=== PATIENT | female | born 1995 | race Caucasian/White ===

== ENCOUNTER 2019-07-05 10:35 | Emergency (ER) | payer SELFPAY ==
[~2019-07-05] VITALS: Ht 172.7 cm; Wt 81.6 kg
[2019-07-05] MEDS ORDERED: SERTRALINE HCL100 MG PO (10:52)
[2019-07-05] MEDS ORDERED: DEBROX15 M1 BOTH EARS (11:19)
--- NOTE | 2019-07-05 11:25 | NUR ---
ER DISCHARGE NOTE: Patient is cleared to be discharged per ERMD, pt is aox4, on room air, with stable vital signs. pt was given dc and prescription instructions, pt was able to verbalize understanding, pt is able to ambulate with steady gait. pt took all belongings.
[2019-07-05 11:43] VITALS: BP 97/68
--- NOTE | 2019-07-05 13:51 | Emergency Room Report ---
History of Present Illness General Chief Complaint: Earache Source: Patient Present Illness HPI 24-year-old female presents ED for evaluation. States she is having trouble hearing from both ears since last night. Denies any pain. Denies any ringing. States that yesterday she used heroin and overdosed. Denies trying to hurt her self. Denies SI or HI. Denies hearing voices. Denies fevers or chills. Denies cough. No other aggravating relieving factors. Denies any other associated symptoms Allergies: Coded Allergies: No Known Allergies (Unverified , 07/05/19) Patient History Past Medical History: psych hx Past Surgical History: none Pertinent Family History: none Social History: Reports: drug use; Denies: smoking, alcohol use Last Menstrual Period: 06/06/19 Now: No Immunizations: UTD Reviewed Nursing Documentation: PMH: Agreed; PSxH: Agreed Nursing Documentation-PMH Past Medical History: No History, Except For Review of Systems All Other Systems: negative except mentioned in HPI Physical Exam Vital Signs Date Time Temp Pulse Resp B/P (MAP) Pulse Ox O2 Delivery O2 Flow Rate FiO2 07/05/19 10:47 97.5 106 18 97/68 (78) 94 Room Air Sp02 EP Interpretation: reviewed, normal General Appearance: no apparent distress, alert, GCS 15, non-toxic Head: normocephalic, atraumatic Eyes: bilateral eye normal inspection, bilateral eye PERRL, bilateral eye EOMI ENT: hearing grossly normal, normal pharynx, no angioedema, normal voice, other - bilateral ear cerumen impaction Neck: full range of motion, supple, no meningismus, supple/symm/no masses Respiratory: chest non-tender, lungs clear, normal breath sounds, speaking full sentences Cardiovascular #1: regular rate, rhythm, no edema Cardiovascular #2: 2+ carotid (R), 2+ carotid (L), 2+ radial (R), 2+ radial (L) , 2+ dorsalis pedis (R), 2+ dorsalis pedis (L) Gastrointestinal: normal bowel sounds, non tender, soft, non-distended, no guarding, no rebound Rectal: deferred Genitourinary: normal inspection, no CVA tenderness Musculoskeletal: back normal, normal range of motion, gait/station normal, non- tender Neurologic: alert, motor strength/tone normal, oriented x3, sensory intact, responsive, speech normal Psychiatric: judgement/insight normal, memory normal, mood/affect normal, no suicidal/homicidal ideation Reflexes: 3+ bicep (R), 3+ bicep (L), 3+ tricep (R), 3+ tricep (L), 3+ knee (R) , 3+ knee (L) Lymphatic: no adenopathy Medical Decision Making Diagnostic Impression: Primary Impression: Cerumen impaction Qualified Codes: H61.23 - Impacted cerumen, bilateral ER Course Hospital Course 24 yo F presents with hearing problems x 1 day. OD on heroin yesterday. Differential diagnoses include: TM perforation, otitis externa, otitis media, vestibulitis/labryntitis Clinical course Patient placed on stretcher. After initial history, physical exam reveals a young female in no acute distress. There is significant cerumen impaction in both ears. Remainder of exam unremarkable. Patient is awake alert oriented x3. Vital stable. Will discharge to home. Cautioned on dangers of heroin use. Will provide referrals Diagnosis - cerumen impaction Stable and discharged to home with Rx Debrox. Followup with PMD. Return to ED if symptoms recur or worsen Last Vital Signs Date Time Temp Pulse Resp B/P (MAP) Pulse Ox O2 Delivery O2 Flow Rate FiO2 07/05/19 11:43 97.5 18 97/68 94 Room Air 07/05/19 10:47 106 Status: improved Disposition: HOME, SELF-CARE Condition: Stable Scripts Carbamide Peroxide (DEBROX) 15 Ml Drops 10 DROP BOTH EARS TWICE A DAY for 4 Days, ML 0 Refills Prov: Ricky Mendoza MD 07/05/19 Referrals: NOT CHOSEN IPA/,REFERRING (PC[facility]) [facility] Patient Instructions: Cerumen Impaction Ricky Mendoza MD Jul 05, 2019 13:51
== END 2019-07-05 11:30 | disposition home or self-care (01) ==
LOC: EMR 11:05
DX: H61.23 Impacted cerumen, bilateral (principal)
CPT/HCPCS: 99282